=== PATIENT | female | born 1970 | race Caucasian/White ===

== ENCOUNTER → 2017-03-03 | Outpatient (CLI) | payer BC ==
--- NOTE | 2017-03-03 10:20 | US ---
HISTORY: Nausea Study: Abdominal Ultrasound Comparison: None Technique: Multiple fang scale and color flow Doppler images of the abdomen were obtained. Findings: The liver is grossly normal in appearance. There is a 1 cm peripheral hyperechoic lesion noted in th e right hepatic lobe that may represent a hemangioma. Echogenic shadowing gallstones are present. N o evidence of pericholecystic fluid, gallbladder wall thickening or sonographic Cardona sign. The com mon bile duct measures 2 mm. The visualized portions of the pancreas are unremarkable. The spleen is normal in echotexture and si ze. Bilateral kidneys appear small otherwise normal in echotexture. The right kidney measures 6.8 x 3.8 x 4 cm. The left kidney measures 6.8 x 4.6 x 4 cm. No mass, hydronephrosis, or stone is identified. The visualized portions of the abdominal aorta are normal in size without aneurysmal dilatation. IMPRESSION: 1. Cholelithiasis without sonographic evidence of acute cholecystitis. 2. Bilateral kidneys appear small but otherwise normal in the sonographic appearance. Correlation wi renal function suggested. 3. Probable hemangioma in the right hepatic lobe. Reported By:
== END ==
LOC: RAD 09:21
PROVIDERS: ATTEND Obstetrics & Gynecology Obstetrics
DX: R11.0 Nausea (principal); K80.80 Other cholelithiasis without obstruction
CPT/HCPCS: 76700